=== PATIENT | female | born 1995 | race Caucasian/White ===

== ENCOUNTER 2021-02-02 16:11 | Emergency (ER) | payer OTHER, MEDICAID ==
[~2021-02-02 16:11] MED LIST: IBUPROFEN 800800 MG PO; YAZ 28 TABLET1 EACH PO
== END 2021-02-02 17:39 | disposition left against medical advice (07) ==
LOC: M.ERS 16:11
DX: R11.2 Nausea with vomiting, unspecified (principal); Z53.21 Procedure and treatment not carried out due to patient leaving prior to being seen by health care provider